=== PATIENT | male | born 1995 | race Caucasian/White ===

== ENCOUNTER 2018-01-26 23:24 | Emergency (ER) | payer OTHER ==
[2018-01-27] MEDS: LIDOCAINE 2% (MDV) 20 ML INJ INJ (01:25)
== END 2018-01-27 02:23 | disposition home or self-care (01) ==
LOC: FTE 23:24
DX: L02.414 Cutaneous abscess of left upper limb (principal)
CPT/HCPCS: 10060; 99284-25